=== PATIENT | male | born 1950 | race Caucasian/White ===

== ENCOUNTER 2019-06-22 11:11 | Emergency (ER) | payer OTHER, MEDICARE ==
--- NOTE | 2019-06-22 12:14 | EDM.PDOC ---
ED HPI GENERAL MEDICAL PROBLEM - General Chief Complaint: General Stated Complaint: CUT OFF PART OF THUMB Time Seen by Provider: 06/22/19 12:00 Source of Information: Reports: Patient History Limitations: Reports: No Limitations - History of Present Illness INITIAL COMMENTS - FREE TEXT/NARRATIVE: Nacho presents due ti degloving his left great thumb nail. He had this accidentally, but nearly instantaneously, removed while he was sawing, as the blade caught the mid-aspect of thumb nail. He has the same range of motion of his interphalangeal joint due to arthritis. No concern for foreign body or contamination. Actually no exposure of the bone at all. Feels a bit diminished in sensation, and pain is tolerable. Declines a tdap due to prior complications. Not interested in sub-specialty management, but promises to return immediately and/or see ortho with any healing concerns or symptom of infection at all. - Related Data Allergies Allergy/AdvReac Type Severity Reaction Status Date / Time No Known Allergies Allergy Verified 06/22/19 11:59 Home Meds: Home Meds Simvastatin 40 mg PO DAILY 06/22/19 [History] lisinopriL [Lisinopril] 20 mg PO DAILY 06/22/19 [History] ED ROS GENERAL - Review of Systems Review Of Systems: See Below Musculoskeletal: Denies: Joint Pain, Joint Swelling Skin: Reports: Wound Neurological: Reports: Paresthesia ED EXAM, GENERAL - Physical Exam Exam: See Below Exam Limited By: No Limitations General Appearance: Alert, WD/WN, No Apparent Distress Eye Exam: Bilateral Eye: EOMI, Normal Inspection Ears: Hearing Grossly Normal Head: Atraumatic, Normocephalic Neck: Normal Inspection, Non-Tender, Full Range of Motion Respiratory/Chest: No Respiratory Distress Extremities: Other (Careful inspection of his left thumb reveals 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 He does not have any active bleeding at the time of evaluation, nor is there any potential for suturing particularly to bolster any of the soft tissue around his distal phalanx with the tip of fully buried within the soft tissue of his thumb and perfusion of his finger otherwise appearing excellent with sensation intact throughout to light touch this was carefully inspected to exclude foreign body and contamination and irrigated per nursing staff after that a nonadherent dressing is applied) Neurological: Alert, Oriented, Normal Cognition Course - Vital Signs Last Recorded V/S: Last Vital Signs Temp 97.5 F 06/22/19 11:42 Pulse 100 06/22/19 11:42 Resp 18 06/22/19 11:42 BP 176/96 H 06/22/19 11:42 Pulse Ox 98 06/22/19 11:42 Departure - Departure Time of Disposition: 12:05 Disposition: Home, Self-Care 01 Clinical Impression: Nail avulsion, finger Qualifiers: Encounter type: initial encounter Qualified Code(s): S61.309A - Unspecified open wound of unspecified finger with damage to nail, initial encounter - Discharge Information Instructions: Wound Care, Adult Referrals: PCP,None [Primary Care Provider] - Forms: ED Department Discharge Additional Instructions: Discharge home. Monitor for signs of infection, return to the ER if there are any signs of infection. Keep clean and dry. Do not soak in the tub. Apply non-adherent dressing to wound daily. Follow up in the ER as needed. Sepsis Event Note - Evaluation Sepsis Screening Result: No Definite Risk - Focused Exam Vital Signs: Vital Signs Temp Pulse Resp BP Pulse Ox 06/22/19 11:42 97.5 F 100 18 176/96 H 98 Date Exam was Performed: 06/22/19 Time Exam was Performed: 12:09
== END 2019-06-22 12:10 | disposition home or self-care (01) ==
LOC: LB.ED 11:11
DX: S61.102A Unspecified open wound of left thumb with damage to nail, initial encounter (principal); Z79.899 Other long term (current) drug therapy; W27.0XXA Contact with workbench tool, initial encounter
CPT/HCPCS: 99282; 99283

== ENCOUNTER 2022-07-07 06:15 | Emergency (ER) | payer OTHER, MEDICARE ==
[2022-07-07] MEDS ORDERED: Sodium Phosphate,Monobasic/Sodium Phosphate,Dibasic Enema 133 ML Bottle RECTAL ONE ×2 (07:19→08:07)
[2022-07-07 07:49] VITALS: BP 118/70; PULSE 80
[2022-07-07] MEDS ORDERED: Sennosides 8.6 MG Tab PO ONE (08:00)
== END 2022-07-07 08:47 | disposition home or self-care (01) ==
LOC: LB.ED 06:15
DX: K59.00 Constipation, unspecified (principal); I10 Essential (primary) hypertension; Z87.891 Personal history of nicotine dependence; Z79.899 Other long term (current) drug therapy
CPT/HCPCS: 99283; A9270-GY

== ENCOUNTER 2023-05-31 10:11 | Emergency (ER) | payer OTHER ==
[2023-05-31 10:20] VITALS: BP 176/100; PULSE 99
[2023-05-31] MEDS: Ketorolac 30 MG/ML SDV IM ONE (10:32)
== END 2023-05-31 10:33 | disposition home or self-care (01) ==
LOC: LB.ED 10:11
DX: M54.2 Cervicalgia (principal); I10 Essential (primary) hypertension; Z79.899 Other long term (current) drug therapy
CPT/HCPCS: 96372; 99283; J1885

== ENCOUNTER 2023-08-14 14:55 | Emergency (ER) | payer OTHER ==
[2023-08-14] MEDS ORDERED: Sodium Chloride 0.9% 10 ML Syringe FLUSH PRN (16:35)
[2023-08-14] MEDS: Sodium Chloride 0.9% 1,000 ML IV SCH (16:51)
[2023-08-14 16:54] LABS: BASOPHILS ABSOLUTE AUTO 0.02 K/uL (0.02-0.10); BASOPHILS PERCENT AUTO 0.3 % (0.0-0.5); EOSINOPHILS ABSOLUTE AUTO 0.14 K/uL (0.04-0.40); EOSINOPHILS PERCENT AUTO 1.8 % (1.0-5.0); HEMATOCRIT 41.1 % (40.0-54.0); HEMOGLOBIN 14.2 g/dL (13.0-18.0); LYMPHOCYTES ABSOLUTE AUTO 0.61 K/uL (1.50-4.00); LYMPHOCYTES PERCENT AUTO 7.9 % (20.0-40.0); MEAN CORPUSCULAR HEMOGLOBIN 31.2 pg (27.0-32.0); MEAN CORPUSCULAR HGB CONC 34.5 g/dL (31.0-35.0); MEAN CORPUSCULAR VOLUME 90 fL (76-96); MEAN PLATELET VOLUME 8.7 fL (6.0-10.0); MONOCYTES ABSOLUTE AUTO 0.54 K/uL (0.20-0.80); NEUTROPHILS ABSOLUTE AUTO 6.45 K/uL (2.00-7.50); PLATELET COUNT,PLT 326 K/uL (150-400); RED BLOOD CELL COUNT 4.55 M/uL (4.50-6.50); RED CELL DISTRIBUTION WIDTH 12.6 % (11.0-16.0); WHITE BLOOD CELL COUNT,WBC 7.8 K/uL (4.0-11.0)
[2023-08-14 17:13] LABS: ALANINE AMINOTRANSFERASE,ALT 21 U/L (12-78); ALBUMIN 4.4 g/dL (3.4-5.0); ALKALINE PHOSPHATASE 111 U/L (46-116); ANION GAP 8.6 mmol/L (5.0-15.0); ASPARTATE AMNIOTRANSFERASE,AST 17 U/L (15-37); BILIRUBIN TOTAL 0.6 mg/dL (0.0-1.0); BLOOD UREA NITROGEN,BUN 15 mg/dL (8-26); BUN/CREATININE RATIO 16.7 (6-25); CALCIUM 10.1 mg/dL (8.5-10.1); CARBON DIOXIDE,CO2 31.4 mmol/L (21.0-32.0); CHLORIDE,CL 90 mmol/L (98-107); ESTIMATED GFR 91 mL/min (>60); GLUCOSE RANDOM 123 mg/dL (74-100); PROTEIN TOTAL,TP 8.7 g/dL (6.4-8.2); SODIUM,NA 126 mmol/L (136-145)
[2023-08-14 17:40] LABS: APPEARANCE,URINE SLIGHTLY CLOUDY (CLEAR); BILIRUBIN,URINE NEGATIVE (NEGATIVE); COLOR,URINE YELLOW; GLUCOSE,URINE NEGATIVE (NEGATIVE); KETONES,URINE NEGATIVE (NEGATIVE); LEUKOCYTE ESTERASE,URINE NEGATIVE (NEGATIVE); NITRITE,URINE NEGATIVE (NEGATIVE); OCCULT BLOOD,URINE NEGATIVE (NEGATIVE); PH,URINE 7.5 (5.0-8.0); PROTEIN,URINE NEGATIVE (NEGATIVE); UROBILINOGEN,URINE 0.2 E.U./dL (0.2-1.0)
[2023-08-14 18:50] VITALS: BP 185/119; PULSE 94
== END 2023-08-14 18:54 | disposition home or self-care (01) ==
LOC: LB.ED 14:55
DX: E63.9 Nutritional deficiency, unspecified (principal); I10 Essential (primary) hypertension
CPT/HCPCS: 36415; 80053; 81003; 85025; 96360; 96361; 99283; 99284-25; J7030

== ENCOUNTER 2023-09-15 14:41 | Emergency (ER) | payer OTHER, MEDICARE ==
[2023-09-15] MEDS: Aspirin 81 MG Tab.Chew PO SCH (15:09)
[2023-09-15] MEDS: Sodium Chloride 0.9% 1,000 ML IV ONE (15:19)
[2023-09-15] MEDS: Ondansetron 4 MG/2 ML SDV IVPUSH ONE (15:20)
[2023-09-15 15:27] LABS: BASOPHILS ABSOLUTE AUTO 0.02 K/uL (0.02-0.10); BASOPHILS PERCENT AUTO 0.2 % (0.0-0.5); EOSINOPHILS ABSOLUTE AUTO 0.03 K/uL (0.04-0.40); EOSINOPHILS PERCENT AUTO 0.2 % (1.0-5.0); HEMATOCRIT 34.4 % (40.0-54.0); HEMOGLOBIN 11.8 g/dL (13.0-18.0); LYMPHOCYTES ABSOLUTE AUTO 0.31 K/uL (1.50-4.00); LYMPHOCYTES PERCENT AUTO 2.3 % (20.0-40.0); MEAN CORPUSCULAR HEMOGLOBIN 31.1 pg (27.0-32.0); MEAN CORPUSCULAR HGB CONC 34.3 g/dL (31.0-35.0); MEAN CORPUSCULAR VOLUME 91 fL (76-96); MONOCYTES ABSOLUTE AUTO 0.81 K/uL (0.20-0.80); MONOCYTES PERCENT AUTO 6.1 % (3.0-10.0); NEUTROPHILS PERCENT AUTO 91.2 % (45.0-70.0); PLATELET COUNT,PLT 275 K/uL (150-400); RED CELL DISTRIBUTION WIDTH 12.5 % (11.0-16.0); WHITE BLOOD CELL COUNT,WBC 13.3 K/uL (4.0-11.0)
[2023-09-15] MEDS ORDERED: Norepinephrine 8 MG in Dextrose 5% in Water 250 ML IV SCH (15:30)
[2023-09-15 15:50] LABS: PTT,PARTIAL THROMBOPLSTIN TIME 26.7 SECONDS (24.4-33.2)
[2023-09-15 15:52] LABS: PROTHROMBIN TIME 10.9 sec (9.0-11.5)
[2023-09-15 15:55] LABS: A/G RATIO 1.1 (0.8-2.0); ALBUMIN 3.3 g/dL (3.4-5.0); ANION GAP 12.7 mmol/L (5.0-15.0); BILIRUBIN TOTAL 0.9 mg/dL (0.0-1.0); BUN/CREATININE RATIO 17.2 (6-25); CALCIUM 8.8 mg/dL (8.5-10.1); CARBON DIOXIDE,CO2 29.3 mmol/L (21.0-32.0); CREATININE 1.28 mg/dL (0.70-1.30); EST CRCL DRUG DOSING (CG) 47.54 mL/min; PROTEIN TOTAL,TP 6.4 g/dL (6.4-8.2)
[2023-09-15 15:58] LABS: MAGNESIUM 1.4 mg/dL (1.8-2.4)
[2023-09-15] MEDS: Lidocaine 1% 5 ML VIAL INJECT ONE (18:36)
[2023-09-16] MEDS: Ondansetron 4 MG/2 ML SDV ONE (13:33)
== END 2023-09-15 16:10 ==
LOC: LB.ED 14:41
DX: R40.4 Transient alteration of awareness (principal); I95.9 Hypotension, unspecified; I10 Essential (primary) hypertension; Z79.899 Other long term (current) drug therapy
CPT/HCPCS: 36415; 51702; 70450; 71250; 74176; 80053; 80307; 82140; 83605; 83735; 84484; 85025; 85379; 85610; 85730; 93005; 93010; 96361; 96374; 99285; 99285-25; A9270-GY; J2405; J7030

== ENCOUNTER 2023-09-30 13:41 | Observation (INO) | payer OTHER, MEDICARE ==
[2023-09-30 14:13] LABS: BASOPHILS ABSOLUTE AUTO 0.04 K/uL (0.02-0.10); BASOPHILS PERCENT AUTO 0.5 % (0.0-0.5); EOSINOPHILS PERCENT AUTO 4.1 % (1.0-5.0); HEMATOCRIT 31.4 % (40.0-54.0); HEMOGLOBIN 10.4 g/dL (13.0-18.0); LYMPHOCYTES ABSOLUTE AUTO 0.95 K/uL (1.50-4.00); MEAN CORPUSCULAR HEMOGLOBIN 30.3 pg (27.0-32.0); MEAN CORPUSCULAR HGB CONC 33.1 g/dL (31.0-35.0); MEAN CORPUSCULAR VOLUME 92 fL (76-96); MEAN PLATELET VOLUME 9.4 fL (6.0-10.0); MONOCYTES ABSOLUTE AUTO 0.83 K/uL (0.20-0.80); MONOCYTES PERCENT AUTO 11.4 % (3.0-10.0); NEUTROPHILS ABSOLUTE AUTO 5.17 K/uL (2.00-7.50); PLATELET COUNT,PLT 349 K/uL (150-400); RED BLOOD CELL COUNT 3.43 M/uL (4.50-6.50); RED CELL DISTRIBUTION WIDTH 12.6 % (11.0-16.0); WHITE BLOOD CELL COUNT,WBC 7.3 K/uL (4.0-11.0)
[2023-09-30] MEDS: Sodium Chloride 0.9% 1,000 ML IV ONE (14:16)
[2023-09-30] MEDS: Midazolam 1 MG/ML 2 ML SDV IVPUSH ONE (14:30)
[2023-09-30] MEDS: Atropine 0.1 MG/ML 10 ML Syringe IVPUSH ONE (14:33)
[2023-09-30] MEDS: fentaNYL 100 MCG/2 ML SDV ONE (14:35)
[2023-09-30 14:37] LABS: A/G RATIO 1.1 (0.8-2.0); ALANINE AMINOTRANSFERASE,ALT 42 U/L (12-78); ALBUMIN 3.3 g/dL (3.4-5.0); ALKALINE PHOSPHATASE 84 U/L (46-116); ANION GAP 8.7 mmol/L (5.0-15.0); ASPARTATE AMNIOTRANSFERASE,AST 25 U/L (15-37); BILIRUBIN TOTAL 0.4 mg/dL (0.0-1.0); BLOOD UREA NITROGEN,BUN 28 mg/dL (8-26); BUN/CREATININE RATIO 28.6 (6-25); CALCIUM 8.8 mg/dL (8.5-10.1); CHLORIDE,CL 97 mmol/L (98-107); CREATININE 0.98 mg/dL (0.70-1.30); ESTIMATED GFR 82 mL/min (>60); GLUCOSE RANDOM 119 mg/dL (74-100); POTASSIUM,K 3.7 mmol/L (3.5-5.1); PROTEIN TOTAL,TP 6.3 g/dL (6.4-8.2); PTT,PARTIAL THROMBOPLSTIN TIME 26.3 SECONDS (24.4-33.2); SODIUM,NA 133 mmol/L (136-145)
[2023-09-30 14:39] LABS: PROTHROMBIN TIME 10.1 sec (9.0-11.5)
[2023-09-30 14:44] LABS: ETHANOL BLOOD MEDICAL < 3.0 mg/dL (<3.0)
[2023-09-30 15:05] LABS: TROPONIN I HIGH SENSITIVITY 4.2 pg/ml (<=60.4)
[2023-09-30] MEDS ORDERED: Non-Formulary Medication 1 Each (Cyclobenzaprine Hcl [Cyclobenzaprine Hcl] 5 MG Tablet) PO PRN (15:55)
[2023-09-30] MEDS ORDERED: Cyclobenzaprine 5 MG Tab PO PRN (15:58)
[2023-09-30] MEDS: Midazolam 1 MG/ML 2 ML SDV ONE (18:09)
[2023-09-30] MEDS: Enoxaparin 40 MG/0.4 ML Syringe SUBCUT SCH (18:10)
[2023-10-01 07:38] LABS: APPEARANCE,URINE CLEAR (CLEAR); BILIRUBIN,URINE NEGATIVE (NEGATIVE); COLOR,URINE YELLOW; GLUCOSE,URINE NEGATIVE (NEGATIVE); KETONES,URINE NEGATIVE (NEGATIVE); LEUKOCYTE ESTERASE,URINE NEGATIVE (NEGATIVE); NITRITE,URINE NEGATIVE (NEGATIVE); OCCULT BLOOD,URINE NEGATIVE (NEGATIVE); PH,URINE 8.5 (5.0-8.0); PROTEIN,URINE NEGATIVE (NEGATIVE); UROBILINOGEN,URINE 0.2 E.U./dL (0.2-1.0)
[2023-10-01 07:46] LABS: RBC,URINE 0-5 /HPF; WBC,URINE NOT SEEN /HPF
[2023-10-01 08:30] VITALS: BP 168/66; PULSE 72
[2023-10-01] MEDS: HYDROCHLOROTHIAZIDE PO SCH (08:42)
[2023-10-01] MEDS: Enoxaparin 40 MG/0.4 ML Syringe SUBCUT SCH (08:42)
[2023-10-01] MEDS: LISINOPRIL PO SCH (08:42)
== END 2023-10-01 09:05 | disposition home or self-care (01) ==
LOC: LB.ED 13:41 → INTOOBSV 15:53 → LB.MS 15:53 → OBSVTOIN 15:53
PROVIDERS: ADMIT Physician Assistant; ATTEND Physician Assistant
DX: R55 Syncope and collapse (principal); I10 Essential (primary) hypertension; Z79.899 Other long term (current) drug therapy
CPT/HCPCS: 36415; 70450; 71250; 74176; 80053; 80307; 81001; 83605; 83735; 84484; 85025; 85379; 85610; 85730; 93005; 96361; 96372; 96374; 96375; 99222; 99238; 99285-25; A9270-GY; G0378; J0461; J1650; J2250; J7030

== ENCOUNTER 2023-10-23 10:06 | Emergency (ER) | payer OTHER, MEDICARE ==
[2023-10-23] MEDS ORDERED: Sodium Chloride 0.9% 10 ML Syringe FLUSH PRN (10:29)
[2023-10-23 10:39] LABS: BASOPHILS ABSOLUTE AUTO 0.02 K/uL (0.02-0.10); BASOPHILS PERCENT AUTO 0.3 % (0.0-0.5); EOSINOPHILS ABSOLUTE AUTO 0.15 K/uL (0.04-0.40); EOSINOPHILS PERCENT AUTO 1.9 % (1.0-5.0); HEMATOCRIT 34.8 % (40.0-54.0); HEMOGLOBIN 11.8 g/dL (13.0-18.0); LYMPHOCYTES ABSOLUTE AUTO 0.89 K/uL (1.50-4.00); LYMPHOCYTES PERCENT AUTO 11.2 % (20.0-40.0); MEAN CORPUSCULAR HEMOGLOBIN 30.7 pg (27.0-32.0); MEAN CORPUSCULAR HGB CONC 33.9 g/dL (31.0-35.0); MEAN CORPUSCULAR VOLUME 91 fL (76-96); MEAN PLATELET VOLUME 9.6 fL (6.0-10.0); MONOCYTES ABSOLUTE AUTO 0.71 K/uL (0.20-0.80); MONOCYTES PERCENT AUTO 8.9 % (3.0-10.0); NEUTROPHILS ABSOLUTE AUTO 6.21 K/uL (2.00-7.50); NEUTROPHILS PERCENT AUTO 77.7 % (45.0-70.0); PLATELET COUNT,PLT 272 K/uL (150-400); RED BLOOD CELL COUNT 3.84 M/uL (4.50-6.50); RED CELL DISTRIBUTION WIDTH 13.2 % (11.0-16.0)
[2023-10-23 10:57] LABS: ALANINE AMINOTRANSFERASE,ALT 27 U/L (12-78); ALBUMIN 3.6 g/dL (3.4-5.0); ALKALINE PHOSPHATASE 89 U/L (46-116); ANION GAP 12.2 mmol/L (5.0-15.0); ASPARTATE AMNIOTRANSFERASE,AST 24 U/L (15-37); BILIRUBIN TOTAL 0.5 mg/dL (0.0-1.0); BLOOD UREA NITROGEN,BUN 24 mg/dL (8-26); BUN/CREATININE RATIO 25.8 (6-25); CALCIUM 9.6 mg/dL (8.5-10.1); CARBON DIOXIDE,CO2 29.5 mmol/L (21.0-32.0); CHLORIDE,CL 95 mmol/L (98-107); CREATININE 0.93 mg/dL (0.70-1.30); ESTIMATED GFR 88 mL/min (>60); GLUCOSE RANDOM 134 mg/dL (74-100); MAGNESIUM 2.1 mg/dL (1.8-2.4); POTASSIUM,K 3.7 mmol/L (3.5-5.1); PROTEIN TOTAL,TP 7.1 g/dL (6.4-8.2); SODIUM,NA 133 mmol/L (136-145)
[2023-10-23 11:52] LABS: AMPHETAMINES SCREEN, URINE NEGATIVE (NEGATIVE); BARBITURATE SCREEN,URINE NEGATIVE (NEGATIVE); BENZODIAZEPINES SCREEN,URINE NEGATIVE (NEGATIVE); METHADONE SCREEN, URINE NEGATIVE (NEGATIVE); METHAMPHETAMINES SCREEN, URINE NEGATIVE (NEGATIVE); OXYCODONE SCREEN,URINE NEGATIVE (NEGATIVE); THC SCREEN,URINE 50 NG/ML NEGATIVE (NEGATIVE)
== END 2023-10-23 14:08 ==
LOC: LB.ED 10:06
DX: R00.1 Bradycardia, unspecified (principal); R55 Syncope and collapse; I10 Essential (primary) hypertension; Z79.899 Other long term (current) drug therapy; V89.2XXA Person injured in unspecified motor-vehicle accident, traffic, initial encounter
CPT/HCPCS: 36415; 70450; 72125; 80053; 80307; 82947; 83735; 85025; 93005; 93010; 99285

== ENCOUNTER 2023-11-05 19:29 | Observation (INO) | payer OTHER, MEDICARE ==
[2023-11-05] MEDS ORDERED: Sodium Chloride 0.9% 10 ML Syringe FLUSH PRN (19:37)
[2023-11-05 20:28] LABS: HEMATOCRIT 31.4 % (40.0-54.0); HEMOGLOBIN 10.7 g/dL (13.0-18.0); MEAN CORPUSCULAR HEMOGLOBIN 30.7 pg (27.0-32.0); MEAN CORPUSCULAR HGB CONC 34.1 g/dL (31.0-35.0); MEAN PLATELET VOLUME 9.4 fL (6.0-10.0); RED BLOOD CELL COUNT 3.48 M/uL (4.50-6.50); WHITE BLOOD CELL COUNT,WBC 6.1 K/uL (4.0-11.0)
[2023-11-05 20:47] LABS: ALBUMIN 3.2 g/dL (3.4-5.0); ANION GAP 11.4 mmol/L (5.0-15.0); BILIRUBIN TOTAL 0.4 mg/dL (0.0-1.0); BUN/CREATININE RATIO 24.1 (6-25); CALCIUM 8.4 mg/dL (8.5-10.1); CARBON DIOXIDE,CO2 29.6 mmol/L (21.0-32.0); CREATININE 0.87 mg/dL (0.70-1.30); EST CRCL DRUG DOSING (CG) 72.45 mL/min; PROTEIN TOTAL,TP 6.3 g/dL (6.4-8.2); TROPONIN I HIGH SENSITIVITY 4.4 pg/ml (<=60.4)
[2023-11-05] MEDS ORDERED: Cyclobenzaprine 5 MG Tab PO PRN (21:58)
[2023-11-06] MEDS: Sodium Chloride 0.9% 1,000 ML IV SCH (01:10)
[2023-11-06] MEDS: Lisinopril 20 MG Tab PO SCH (07:45)
[2023-11-06] MEDS: Hydrochlorothiazide 25 MG Tab PO SCH (07:46)
[2023-11-06] MEDS: Simvastatin 40 MG Tab PO SCH (07:46)
== END 2023-11-06 10:30 | disposition home or self-care (01) ==
LOC: LB.ED 19:29 → LB.MS 20:33 → INTOOBSV 20:33 → UNDOADMIN 21:03 → LB.MS 21:03
PROVIDERS: ADMIT Surgery; ATTEND Surgery
DX: R55 Syncope and collapse (principal); I10 Essential (primary) hypertension; R40.4 Transient alteration of awareness; Z79.899 Other long term (current) drug therapy
CPT/HCPCS: 36415; 80053; 84484; 85027; 93005; 99285; A9270; G0378; J7030; 99222; 99238

== ENCOUNTER 2023-12-01 14:27 | Emergency (ER) | payer OTHER, MEDICARE ==
[2023-12-01] MEDS: Sodium Chloride 0.9% 1,000 ML IV ONE (14:00)
[2023-12-01] MEDS: Ondansetron 4 MG/2 ML SDV IVPUSH ONE (14:37)
[2023-12-01 15:05] LABS: BASOPHILS ABSOLUTE AUTO 0.03 K/uL (0.02-0.10); BASOPHILS PERCENT AUTO 0.4 % (0.0-0.5); EOSINOPHILS ABSOLUTE AUTO 0.15 K/uL (0.04-0.40); EOSINOPHILS PERCENT AUTO 1.8 % (1.0-5.0); HEMATOCRIT 34.7 % (40.0-54.0); HEMOGLOBIN 11.5 g/dL (13.0-18.0); LYMPHOCYTES ABSOLUTE AUTO 0.52 K/uL (1.50-4.00); LYMPHOCYTES PERCENT AUTO 6.1 % (20.0-40.0); MEAN CORPUSCULAR HEMOGLOBIN 30.3 pg (27.0-32.0); MEAN CORPUSCULAR HGB CONC 33.1 g/dL (31.0-35.0); MEAN CORPUSCULAR VOLUME 91 fL (76-96); MEAN PLATELET VOLUME 9.2 fL (6.0-10.0); MONOCYTES ABSOLUTE AUTO 0.42 K/uL (0.20-0.80); NEUTROPHILS ABSOLUTE AUTO 7.34 K/uL (2.00-7.50); NEUTROPHILS PERCENT AUTO 86.7 % (45.0-70.0); PLATELET COUNT,PLT 398 K/uL (150-400); RED CELL DISTRIBUTION WIDTH 13.6 % (11.0-16.0); WHITE BLOOD CELL COUNT,WBC 8.5 K/uL (4.0-11.0)
[2023-12-01 15:28] LABS: ALBUMIN 3.8 g/dL (3.4-5.0); BILIRUBIN TOTAL 0.5 mg/dL (0.0-1.0); BUN/CREATININE RATIO 23.8 (6-25); CALCIUM 9.5 mg/dL (8.5-10.1); CARBON DIOXIDE,CO2 30.1 mmol/L (21.0-32.0); CREATININE 0.84 mg/dL (0.70-1.30); EST CRCL DRUG DOSING (CG) 75.04 mL/min; POTASSIUM,K 4.5 mmol/L (3.5-5.1); PROTEIN TOTAL,TP 7.6 g/dL (6.4-8.2); TROPONIN I HIGH SENSITIVITY 8.4 pg/ml (<=60.4)
[2023-12-01] MEDS: Lactated Ringers 1,000 ML IV SCH (15:29)
[2023-12-01 18:16] LABS: ANION GAP 12.4 mmol/L (5.0-15.0)
== END 2023-12-01 16:36 | disposition home or self-care (01) ==
LOC: LB.ED 14:27
DX: R55 Syncope and collapse (principal); I10 Essential (primary) hypertension; Z79.899 Other long term (current) drug therapy
CPT/HCPCS: 36415; 80053; 84484; 85025; 93005; 93010; 96361; 96374; 99284; 99284-25; J2405; J7030; J7120

== ENCOUNTER 2023-12-04 07:53 | Emergency (ER) | payer OTHER, MEDICARE ==
[2023-12-04] MEDS ORDERED: Sodium Chloride 0.9% 10 ML Syringe FLUSH PRN (08:05)
[2023-12-04 08:48] LABS: HEMATOCRIT 32.6 % (40.0-54.0); HEMOGLOBIN 10.6 g/dL (13.0-18.0); MEAN CORPUSCULAR HEMOGLOBIN 29.8 pg (27.0-32.0); MEAN CORPUSCULAR HGB CONC 32.5 g/dL (31.0-35.0); MEAN PLATELET VOLUME 9.2 fL (6.0-10.0); RED BLOOD CELL COUNT 3.56 M/uL (4.50-6.50); RED CELL DISTRIBUTION WIDTH 13.5 % (11.0-16.0); WHITE BLOOD CELL COUNT,WBC 8.2 K/uL (4.0-11.0)
[2023-12-04] MEDS: Sodium Chloride 0.9% 1,000 ML IV SCH (08:57)
[2023-12-04 09:07] LABS: ANION GAP 11.7 mmol/L (5.0-15.0); BLOOD UREA NITROGEN,BUN 18 mg/dL (8-26); BUN/CREATININE RATIO 20.7 (6-25); CALCIUM 9.6 mg/dL (8.5-10.1); CARBON DIOXIDE,CO2 31.6 mmol/L (21.0-32.0); CHLORIDE,CL 97 mmol/L (98-107); CREATININE 0.87 mg/dL (0.70-1.30); ESTIMATED GFR 92 mL/min (>60); GLUCOSE RANDOM 114 mg/dL (74-100); MAGNESIUM 1.9 mg/dL (1.8-2.4); POTASSIUM,K 4.3 mmol/L (3.5-5.1); SODIUM,NA 136 mmol/L (136-145)
[2023-12-04 10:16] VITALS: BP 145/64; PULSE 68
== END 2023-12-04 10:26 | disposition home or self-care (01) ==
LOC: LB.ED 07:53
DX: R55 Syncope and collapse (principal); E86.0 Dehydration; I10 Essential (primary) hypertension; Z79.899 Other long term (current) drug therapy
CPT/HCPCS: 36415; 80048; 83735; 84484; 85027; 93005; 96360; 99284-25; J7030

== ENCOUNTER 2023-12-13 11:24 | Emergency (ER) | payer OTHER, MEDICARE ==
[2023-12-13] MEDS: Lactated Ringers 1,000 ML IV SCH (11:27)
[2023-12-13] MEDS ORDERED: Sodium Chloride 0.9% 10 ML Syringe FLUSH PRN (11:28)
[2023-12-13 11:43] LABS: HEMATOCRIT 32.2 % (40.0-54.0); HEMOGLOBIN 10.6 g/dL (13.0-18.0); MEAN CORPUSCULAR HGB CONC 32.9 g/dL (31.0-35.0); MEAN PLATELET VOLUME 9.4 fL (6.0-10.0); RED BLOOD CELL COUNT 3.53 M/uL (4.50-6.50); RED CELL DISTRIBUTION WIDTH 13.4 % (11.0-16.0); WHITE BLOOD CELL COUNT,WBC 6.1 K/uL (4.0-11.0)
[2023-12-13 12:06] LABS: ANION GAP 10.6 mmol/L (5.0-15.0); CALCIUM 9.5 mg/dL (8.5-10.1); CARBON DIOXIDE,CO2 31.2 mmol/L (21.0-32.0); CREATININE 0.8 mg/dL (0.70-1.30); EST CRCL DRUG DOSING (CG) 78.79 mL/min; MAGNESIUM 2.2 mg/dL (1.8-2.4); PHOSPHORUS 4.3 mg/dL (2.5-4.9); POTASSIUM,K 4.8 mmol/L (3.5-5.1); TROPONIN I HIGH SENSITIVITY 7.1 pg/ml (<=60.4)
[2023-12-13] MEDS: Sodium Chloride 0.9% 1,000 ML IV SCH (12:37)
== END 2023-12-13 19:35 ==
LOC: LB.ED 11:24
DX: R55 Syncope and collapse (principal); I95.9 Hypotension, unspecified; E86.0 Dehydration; I49.9 Cardiac arrhythmia, unspecified; I10 Essential (primary) hypertension; Z79.899 Other long term (current) drug therapy
CPT/HCPCS: 36415; 80048; 83735; 84100; 84484; 85027; 93005; 93010; 96360; 96361; 99285; J7030; J7120

== ENCOUNTER 2024-03-09 09:40 | Emergency (ER) | payer OTHER, MEDICARE ==
[2024-03-09] MEDS ORDERED: Sodium Chloride 0.9% 10 ML Syringe FLUSH PRN (10:00)
[2024-03-09] MEDS: Sodium Chloride 0.9% 1,000 ML IV SCH (10:21)
[2024-03-09 10:23] LABS: HEMOGLOBIN 10.8 g/dL (13.0-18.0); MEAN CORPUSCULAR HEMOGLOBIN 28.6 pg (27.0-32.0); MEAN CORPUSCULAR HGB CONC 32.7 g/dL (31.0-35.0); MEAN PLATELET VOLUME 8.5 fL (6.0-10.0); RED BLOOD CELL COUNT 3.77 M/uL (4.50-6.50); RED CELL DISTRIBUTION WIDTH 14.2 % (11.0-16.0); WHITE BLOOD CELL COUNT,WBC 11.3 K/uL (4.0-11.0)
[2024-03-09 10:35] LABS: A/G RATIO 0.6 (0.8-2.0); ALBUMIN 2.7 g/dL (3.4-5.0); ANION GAP 10.7 mmol/L (5.0-15.0); BILIRUBIN TOTAL 0.3 mg/dL (0.0-1.0); BUN/CREATININE RATIO 30.1 (6-25); CALCIUM 9.1 mg/dL (8.5-10.1); CARBON DIOXIDE,CO2 34.5 mmol/L (21.0-32.0); CREATININE 0.73 mg/dL (0.70-1.30); EST CRCL DRUG DOSING (CG) 82.16 mL/min; MAGNESIUM 2.1 mg/dL (1.8-2.4); POTASSIUM,K 4.2 mmol/L (3.5-5.1); PROTEIN TOTAL,TP 7.1 g/dL (6.4-8.2)
[2024-03-09 10:57] LABS: INFLUENZA A NAA NEGATIVE (NEGATIVE); INFLUENZA B NAA NEGATIVE (NEGATIVE); RESPIRATORY SYNCYTIAL VIR NAA NEGATIVE (NEGATIVE)
[2024-03-09 11:09] LABS: CORONAVIRUS COVID-19 NAA NEGATIVE (NEGATIVE)
[2024-03-09 12:02] LABS: APPEARANCE,URINE CLEAR (CLEAR); BILIRUBIN,URINE NEGATIVE (NEGATIVE); COLOR,URINE YELLOW; GLUCOSE,URINE NEGATIVE (NEGATIVE); KETONES,URINE NEGATIVE (NEGATIVE); LEUKOCYTE ESTERASE,URINE NEGATIVE (NEGATIVE); NITRITE,URINE NEGATIVE (NEGATIVE); OCCULT BLOOD,URINE NEGATIVE (NEGATIVE); PROTEIN,URINE NEGATIVE (NEGATIVE); UROBILINOGEN,URINE 0.2 E.U./dL (0.2-1.0)
== END 2024-03-09 12:45 | disposition home or self-care (01) ==
LOC: LB.ED 09:40
DX: E03.4 Atrophy of thyroid (acquired) (principal); R53.1 Weakness; I10 Essential (primary) hypertension; Z79.899 Other long term (current) drug therapy
CPT/HCPCS: 0241U; 36415; 80053; 81003; 83735; 84443; 85027; 96360; 96361; 99284; J7030

== ENCOUNTER 2024-03-15 18:13 | Emergency (ER) | payer OTHER, MEDICARE ==
[2024-03-15] MEDS ORDERED: Azithromycin 250 MG Tab ONE (21:00)
== END 2024-03-15 21:55 | disposition home or self-care (01) ==
LOC: LB.ED 18:13
DX: J69.0 Pneumonitis due to inhalation of food and vomit (principal); K22.2 Esophageal obstruction; I10 Essential (primary) hypertension; Z79.899 Other long term (current) drug therapy
CPT/HCPCS: 70490; 71250; 99285; A9270-GY

== ENCOUNTER 2024-03-20 15:53 | Emergency (ER) | payer OTHER, MEDICARE | END 2024-03-20 17:50 | LOC: LB.ED 15:53 | DX: C02.9 Malignant neoplasm of tongue, unspecified (principal); R06.1 Stridor; I10 Essential (primary) hypertension; Z79.899 Other long term (current) drug therapy | CPT/HCPCS: 99285 ==

== ENCOUNTER 2024-03-27 18:35 | Emergency (ER) | payer MEDICARE, OTHER ==
[2024-03-27] MEDS: Albuterol/Ipratropium 3.0-0.5 MG/3 ML Neb Soln NEB SCH (18:54)
[2024-03-27] MEDS: Albuterol 0.083% 2.5 MG/3 ML Neb Soln NEB ONE (19:18)
[2024-03-27] MEDS ORDERED: Sodium Chloride 0.9% Inhalation Soln 3 ML Neb INH PRN (19:22)
[2024-03-27] MEDS: Racepinephrine 2.25% 0.5 ML Neb Soln NEB ONE (19:35)
== END 2024-03-27 20:12 | disposition home or self-care (01) ==
LOC: LB.ED 19:04
DX: R06.02 Shortness of breath (principal); I10 Essential (primary) hypertension; Z79.899 Other long term (current) drug therapy
CPT/HCPCS: 94640; 99285; A0425; A0429; J7620

== ENCOUNTER 2024-04-04 11:45 | Emergency (ER) | payer OTHER ==
[2024-04-04] MEDS ORDERED: Sodium Chloride 0.9% Inhalation Soln 3 ML Neb INH PRN ×2 (11:50→13:12)
[2024-04-04] MEDS: Racepinephrine 2.25% 0.5 ML Neb Soln NEB ONE ×2 (11:56→13:14)
[2024-04-04] MEDS: methylPREDNISolone Sodium Succinate 125 MG/2 ML SDV IM ONE (12:37)
[2024-04-04 12:44] LABS: BASOPHILS ABSOLUTE AUTO 0.05 K/uL (0.02-0.10); BASOPHILS PERCENT AUTO 0.4 % (0.0-0.5); EOSINOPHILS ABSOLUTE AUTO 0.03 K/uL (0.04-0.40); EOSINOPHILS PERCENT AUTO 0.2 % (1.0-5.0); HEMATOCRIT 36.7 % (40.0-54.0); LYMPHOCYTES ABSOLUTE AUTO 0.48 K/uL (1.50-4.00); LYMPHOCYTES PERCENT AUTO 3.4 % (20.0-40.0); MEAN CORPUSCULAR HEMOGLOBIN 28.6 pg (27.0-32.0); MEAN CORPUSCULAR HGB CONC 32.7 g/dL (31.0-35.0); MEAN CORPUSCULAR VOLUME 88 fL (76-96); MEAN PLATELET VOLUME 8.9 fL (6.0-10.0); MONOCYTES PERCENT AUTO 4.2 % (3.0-10.0); NEUTROPHILS ABSOLUTE AUTO 12.98 K/uL (2.00-7.50); NEUTROPHILS PERCENT AUTO 91.8 % (45.0-70.0); PLATELET COUNT,PLT 414 K/uL (150-400); RED BLOOD CELL COUNT 4.19 M/uL (4.50-6.50); RED CELL DISTRIBUTION WIDTH 14.8 % (11.0-16.0); WHITE BLOOD CELL COUNT,WBC 14.1 K/uL (4.0-11.0)
[2024-04-04] MEDS ORDERED: Naloxone 2 MG/2 ML Syringe IVPUSH PRN (13:17)
[2024-04-04] MEDS: Morphine 2 MG/ML SYRINGE IVPUSH ONE (13:18)
[2024-04-04 13:21] LABS: A/G RATIO 0.8 (0.8-2.0); ALBUMIN 3.3 g/dL (3.4-5.0); ANION GAP 10.9 mmol/L (5.0-15.0); BILIRUBIN TOTAL 0.6 mg/dL (0.0-1.0); CALCIUM 9.6 mg/dL (8.5-10.1); CARBON DIOXIDE,CO2 34.3 mmol/L (21.0-32.0); CREATININE 0.8 mg/dL (0.70-1.30); EST CRCL DRUG DOSING (CG) 68.01 mL/min; POTASSIUM,K 4.2 mmol/L (3.5-5.1); PROTEIN TOTAL,TP 7.5 g/dL (6.4-8.2); TSH ULTRASENSITIVE 39.265 uIU/mL (0.358-3.740)
== END 2024-04-04 13:48 | disposition home or self-care (01) ==
LOC: LB.ED 11:45
DX: R06.02 Shortness of breath (principal); R06.00 Dyspnea, unspecified; I10 Essential (primary) hypertension; Z79.899 Other long term (current) drug therapy
CPT/HCPCS: 36415; 80053; 84443; 85025; 94640; 96372; 96374; 99285; A0425; A0429; J2270; J2919

== ENCOUNTER 2024-04-06 10:51 | Inpatient (IN) | payer OTHER, MEDICARE ==
[2024-04-06] MEDS: Racepinephrine 2.25% 0.5 ML Neb Soln NEB ONE (11:46)
[2024-04-06] MEDS ORDERED: Sodium Chloride 0.9% Inhalation Soln 3 ML Neb INH PRN (11:46)
[2024-04-06] MEDS: LORazepam 2 MG/ML SDV IVPUSH ONE (13:25)
[2024-04-06 14:12] LABS: BASOPHILS ABSOLUTE AUTO 0.04 K/uL (0.02-0.10); BASOPHILS PERCENT AUTO 0.3 % (0.0-0.5); EOSINOPHILS ABSOLUTE AUTO 0.02 K/uL (0.04-0.40); EOSINOPHILS PERCENT AUTO 0.1 % (1.0-5.0); HEMATOCRIT 36.5 % (40.0-54.0); HEMOGLOBIN 11.9 g/dL (13.0-18.0); LYMPHOCYTES PERCENT AUTO 3.3 % (20.0-40.0); MEAN CORPUSCULAR HEMOGLOBIN 28.6 pg (27.0-32.0); MEAN CORPUSCULAR HGB CONC 32.6 g/dL (31.0-35.0); MEAN CORPUSCULAR VOLUME 88 fL (76-96); MEAN PLATELET VOLUME 9.1 fL (6.0-10.0); MONOCYTES ABSOLUTE AUTO 0.85 K/uL (0.20-0.80); MONOCYTES PERCENT AUTO 5.6 % (3.0-10.0); NEUTROPHILS ABSOLUTE AUTO 13.79 K/uL (2.00-7.50); NEUTROPHILS PERCENT AUTO 90.7 % (45.0-70.0); PLATELET COUNT,PLT 428 K/uL (150-400); RED BLOOD CELL COUNT 4.16 M/uL (4.50-6.50); RED CELL DISTRIBUTION WIDTH 14.8 % (11.0-16.0); WHITE BLOOD CELL COUNT,WBC 15.2 K/uL (4.0-11.0)
[2024-04-06 14:31] LABS: C-REACTIVE PROTEIN 27.3 mg/L (<5.0); MAGNESIUM 2.1 mg/dL (1.8-2.4)
[2024-04-06 14:33] LABS: A/G RATIO 0.8 (0.8-2.0); ALBUMIN 3.2 g/dL (3.4-5.0); ANION GAP 8.6 mmol/L (5.0-15.0); BILIRUBIN TOTAL 0.8 mg/dL (0.0-1.0); BUN/CREATININE RATIO 30.5 (6-25); CALCIUM 9.6 mg/dL (8.5-10.1); CARBON DIOXIDE,CO2 34.9 mmol/L (21.0-32.0); CREATININE 0.82 mg/dL (0.70-1.30); EST CRCL DRUG DOSING (CG) 62.69 mL/min; POTASSIUM,K 4.5 mmol/L (3.5-5.1); PROTEIN TOTAL,TP 7.3 g/dL (6.4-8.2)
[2024-04-06 14:48] LABS: APPEARANCE,URINE CLEAR (CLEAR); BILIRUBIN,URINE NEGATIVE (NEGATIVE); COLOR,URINE YELLOW; GLUCOSE,URINE NEGATIVE (NEGATIVE); KETONES,URINE NEGATIVE (NEGATIVE); LEUKOCYTE ESTERASE,URINE NEGATIVE (NEGATIVE); NITRITE,URINE NEGATIVE (NEGATIVE); OCCULT BLOOD,URINE NEGATIVE (NEGATIVE); PROTEIN,URINE TRACE mg/dL (NEGATIVE); RBC,URINE NOT SEEN /HPF; UROBILINOGEN,URINE 0.2 E.U./dL (0.2-1.0); WBC,URINE 0-5 /HPF
[2024-04-06] MEDS: Labetalol 100 MG/20 ML MDV IVPUSH ONE (15:10)
[2024-04-06] MEDS ORDERED: ACETAMINOPHEN 500 MG GTUBE PRN ×2 (15:35→15:47)
[2024-04-06] MEDS ORDERED: Morphine 15 MG Tab PO PRN (15:35)
[2024-04-06] MEDS ORDERED: Ondansetron 4 MG/2 ML SDV IV PRN (15:37)
[2024-04-06] MEDS: Lisinopril 20 MG Tab GTUBE ONE (15:41)
[2024-04-06] MEDS ORDERED: Acetaminophen 500 MG Tab GTUBE PRN (17:00)
[2024-04-06] MEDS ORDERED: Sennosides 8.6 MG Tab GTUBE PRN (17:56)
[2024-04-06] MEDS ORDERED: Midodrine 5 MG Tab GTUBE SCH (18:00)
[2024-04-06] MEDS: LORazepam 0.5 MG Tab PO SCH (20:13)
[2024-04-06] MEDS: Scopolamine 1 MG Transdermal Patch TOP SCH (20:16)
[2024-04-07] MEDS: Morphine 2 MG/ML SYRINGE IVPUSH PRN (00:36)
[2024-04-07] MEDS: LORazepam 0.5 MG Tab GTUBE PRN ×2 (04:27→19:24)
[2024-04-07] MEDS: NP THYROID 30 MG GTUBE SCH (06:07)
[2024-04-07] MEDS ORDERED: Lisinopril 20 MG Tab GTUBE SCH (08:00)
[2024-04-07] MEDS: Lisinopril 20 MG Tab GTUBE SCH (09:47)
[2024-04-07] MEDS: Enoxaparin 40 MG/0.4 ML Syringe SUBCUT SCH (09:47)
[2024-04-07] MEDS: Sodium Chloride 0.9% 1,000 ML IV ONE (10:29)
[2024-04-07 19:56] VITALS: BP 132/61; PULSE 99
[2024-04-07] MEDS: Morphine 4 MG/ML VIAL IVPUSH PRN (21:15)
[2024-04-07] MEDS: LORazepam 0.5 MG Tab PO SCH (21:16)
== END 2024-04-07 21:35 | disposition expired | DRG 305 ==
LOC: LB.ED 10:51 → LB.MS 15:33 → OBSVTOIN 04-07 12:05
PROVIDERS: ADMIT Physician Assistant; ATTEND Family Medicine
DX: I16.1 Hypertensive emergency (principal); I10 Essential (primary) hypertension; F41.9 Anxiety disorder, unspecified; Z66 Do not resuscitate; Z51.5 Encounter for palliative care; J30.9 Allergic rhinitis, unspecified; M19.90 Unspecified osteoarthritis, unspecified site; J98.8 Other specified respiratory disorders; C01 Malignant neoplasm of base of tongue; K22.2 Esophageal obstruction; R00.1 Bradycardia, unspecified; Z79.899 Other long term (current) drug therapy; Z93.1 Gastrostomy status; Z95.0 Presence of cardiac pacemaker; Z87.01 Personal history of pneumonia (recurrent); Z92.3 Personal history of irradiation
CPT/HCPCS: 36415; 71045; 80053; 81001; 83605; 83735; 85025; 86140; 87428-QW; 94640; 96361; 96372; 96374; 96375; 99222; 99238; 99285-25; A0425; A0429; A9270-GY; G0378; J1650; J1920; J2060; J2270; J7030